=== PATIENT | male | born 1995 | race Caucasian/White ===

== ENCOUNTER 2017-09-10 14:08 | Emergency (ER) | payer OTHER, SELFPAY ==
[2017-09-10] MEDS ORDERED: Lidocaine 1% 20 ML MDV ONE (14:12)
[2017-09-10] MEDS ORDERED: Bacitracin Zinc 1 Packet ONE (14:19)
== END 2017-09-10 14:50 | disposition home or self-care (01) ==
LOC: NAV ERS 14:08
DX: S61.412A Laceration without foreign body of left hand, initial encounter (principal); E10.9 Type 1 diabetes mellitus without complications; F17.210 Nicotine dependence, cigarettes, uncomplicated; W27.8XXA Contact with other nonpowered hand tool, initial encounter
CPT/HCPCS: 12002; 99001; J2001

== ENCOUNTER 2018-07-14 08:14 | Emergency (ER) | payer OTHER ==
[2018-07-14] MEDS ORDERED: Bacitracin Zinc 1 Packet ONE (08:37)
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
== END 2018-07-14 09:28 | disposition home or self-care (01) ==
LOC: NAV ERS 08:14
DX: S50.812A Abrasion of left forearm, initial encounter (principal); S00.81XA Abrasion of other part of head, initial encounter; E10.9 Type 1 diabetes mellitus without complications; F17.210 Nicotine dependence, cigarettes, uncomplicated; V86.59XA Driver of other special all-terrain or other off-road motor vehicle injured in nontraffic accident, initial encounter
CPT/HCPCS: 72100

== ENCOUNTER 2018-10-10 11:09 | Emergency (ER) | payer OTHER ==
[2018-10-10] MEDS ORDERED: Dextrose 50% Abboject 50 ML SYRINGE ONE ×3 (11:26→12:39)
== END 2018-10-10 13:40 | disposition home or self-care (01) ==
LOC: NAV ERS 11:09
DX: E10.649 Type 1 diabetes mellitus with hypoglycemia without coma (principal); F17.210 Nicotine dependence, cigarettes, uncomplicated
CPT/HCPCS: 36416; 96374; 96376

== ENCOUNTER 2021-04-13 14:37 | Emergency (ER) | payer SELFPAY | END 2021-04-13 15:05 | disposition home or self-care (01) | LOC: NAV ERS 14:37 | DX: L03.116 Cellulitis of left lower limb (principal); S91.312D Laceration without foreign body, left foot, subsequent encounter; E10.9 Type 1 diabetes mellitus without complications; F17.210 Nicotine dependence, cigarettes, uncomplicated; Z79.4 Long term (current) use of insulin; V89.2XXD Person injured in unspecified motor-vehicle accident, traffic, subsequent encounter | CPT/HCPCS: 99283 ==

== ENCOUNTER 2021-06-18 03:17 | Emergency (ER) | payer SELFPAY ==
[2021-06-18] MEDS ORDERED: Insulin Regular 300 UNITS/3 ML VIAL ONE (03:45)
== END 2021-06-18 03:50 | disposition home or self-care (01) ==
LOC: NAV ERS 03:17
DX: E10.65 Type 1 diabetes mellitus with hyperglycemia (principal); F17.210 Nicotine dependence, cigarettes, uncomplicated; Z79.4 Long term (current) use of insulin
CPT/HCPCS: 36416; 99284; J1815

== ENCOUNTER 2024-11-13 09:07 | Emergency (ER) | payer SELFPAY ==
[2024-11-13] MEDS ORDERED: Bacitracin 1 PK ONE (09:44)
[2024-11-13] MEDS ORDERED: Boostrix 0.5 ML (Tdap) VIAL (>/=7 yrs of age) ONE (09:45)
== END 2024-11-13 10:45 | disposition home or self-care (01) ==
LOC: NAV ERS 09:07
DX: E11.649 Type 2 diabetes mellitus with hypoglycemia without coma (principal); S80.212A Abrasion, left knee, initial encounter; S93.601A Unspecified sprain of right foot, initial encounter; W19.XXXA Unspecified fall, initial encounter
CPT/HCPCS: 36416; 90471; 90715